=== PATIENT | female | born 1980 | race American Indian/Alaskan Native ===

== ENCOUNTER 2018-01-04 10:01 | Emergency (ER) | payer SELFPAY ==
[2018-01-04] MEDS ORDERED: NACL 0.9% 1000 ML 1,000 ML IV ONE (10:57)
[2018-01-04] MEDS ORDERED: MORPHINE IV ONE (10:57)
[2018-01-04] MEDS ORDERED: TORADOL IV ONE (10:57)
[2018-01-04] MEDS ORDERED: ZOFRAN IV ONE (10:57)
--- NOTE | 2018-01-04 10:59 | Emergency Department Report ---
Blank Doc - Documentation Documentation: Patient 37-year-old Female who had abrupt onset of pain this morning. Patient has pain in the right flank. Patient has some urinary frequency and dysuria as well. Patient has a history of kidney stones. Focused physical exam patient is has some mild to moderate distress secondary to pain. She does have some right CVA tenderness. Show will have a CT of abdomen and pelvis done patient be given this for symptomatic relief.
[2018-01-04 11:15] LABS: Basophils % (Auto) 0.4 % (0.0-1.8); Eosinophils # (Auto) 0.1 K/mm3 (0.0-0.4); Eosinophils % (Auto) 1.4 % (0.0-4.3); Hematocrit 32.9 % (30.3-42.9); Hemoglobin 10.7 gm/dl (10.1-14.3); Lymphocytes # (Auto) 2.6 K/mm3 (1.2-5.4); Mean Corpuscular HGB Conc 33 % (30-34); Mean Corpuscular Hemoglobin 27 pg (28-32); Mean Corpuscular Volume 82 fl (79-97); Monocytes # (Auto) 0.4 K/mm3 (0.0-0.8); Monocytes % (Auto) 5.9 % (0.0-7.3); Platelet Count 318 K/mm3 (140-440); Red Blood Count 4.02 M/mm3 (3.65-5.03); Red Cell Distribution Width 15.9 % (13.2-15.2)
[2018-01-04 11:31] LABS: BUN/Creatinine Ratio 11; Blood Urea Nitrogen 9 mg/dL (7-17); Calcium 8.4 mg/dL (8.4-10.2); Hemolysis Index 9
[2018-01-04 11:39] LABS: Bacteria,Urine 1+ /HPF (Negative); Bilirubin,Urine NEG (Negative); Blood,Urine NEG (Negative); Color,Urine Yellow (Yellow); Mucus,Urine 1+ /HPF; Protein,Urine <15 mg/dL mg/dL (Negative); Urobilinogen,Urine < 2.0 mg/dL (<2.0)
[2018-01-04 11:40] LABS: HCG Qualitative,Urine Negative (Negative)
--- NOTE | 2018-01-04 13:00 | Cat Scan Report ---
CT abdomen and pelvis without contrast: Right flank pain. Transverse images are obtained from lower chest to the ischium with coronal and sagittal 2-D reformatted images. The visualized lung bases are normal. The solid abdominal organs appear normal as does the gallbladder. The stomach is distended with fluid. The right kidney contains a circumscribed low density mass measuring 2.6 cm consistent with cyst. There 2 small calcifications in the upper and mid right kidney with a larger calcification in the central lower kidney measuring 7.7 mm in size. There are 2 dominant calcifications in the left kidney. In the upper pole and measures 4 mm and in the lower pole is a 3.5 mm calcification. The right renal collecting system it does appear slightly dilated as does the right ureter to the level of the pelvis. There are some calcifications in the pelvis which are either adjacent or lie within the ureter. The larger of the 2 measures just under 7 mm. The left collecting system is nondilated and there is no apparent ureteral calculus. The unopacified bowel and mesentery are are unremarkable. The appendix is visualized. Imaging of the pelvis demonstrate an apparent enlargement of a multilobulated uterus measuring approximately 14 cm in maximum dimension. Impressions: 1. Multiple bilateral renal calculi. 2. Mild right nephroureteral dilatation most likely due to a distal ureteral calculus but not confirmed. See discussion above. 3. Enlarged multilobulated uterus.
--- NOTE | 2018-01-04 13:21 | Emergency Department Report ---
ED Abdominal Pain HPI - General Chief Complaint: Back Pain/Injury Stated Complaint: SOB, BACK PAIN Time Seen by Provider: 01/04/18 10:55 Source: patient, family Mode of arrival: Ambulatory Limitations: No Limitations - History of Present Illness Initial Comments: Patient 37-year-old Female who had abrupt onset of pain this morning. Patient has pain in the right flank. Patient has some urinary frequency and dysuria as well. Patient has a history of kidney stones. Patient reports some nausea and vomiting. . Pain is 10 out of 10 sharp and crampy. Denies any fever or chills. No medication taken for pain per patient. Pain is exacerbated by movement and no alleviating factors. MD Complaint: flank pain -: This morning Location: R flank Radiation: none Migration to: no migration Severity scale (0 -10): 10 Quality: cramping, sharp Consistency: constant Improves With: nothing Worsens With: vomiting, movement Context: other (history of kidney stones) Associated Symptoms: nausea, vomiting, dysuria. denies: diarrhea, fever, chills , constipation, hematemesis, hematochezia, melena, hematuria, anorexia, syncope Treatments Prior to Arrival: other (none taken) - Related Data LMP Date: 12/14/17 Previous Rx's Medication Instructions Recorded Last Taken Type HYDROcodone/ACETAMINOPHEN [[place] 1 each PO Q6H PRN #12 tablet 01/04/18 Unknown Rx 5-325 Tablet] Ondansetron [Zofran Odt] 4 mg PO Q6H PRN #20 tab.rapdis 01/04/18 Unknown Rx cephALEXin [Keflex] 500 mg PO Q8HR 7 Days #21 cap 01/04/18 Unknown Rx Allergies Allergy/AdvReac Type Severity Reaction Status Date / Time No Known Allergies Allergy Unverified 01/04/18 10:33 ED Review of Systems ROS: Stated complaint: SOB, BACK PAIN Other details as noted in HPI Constitutional: denies: chills, fever ENT: denies: ear pain, throat pain, congestion Respiratory: denies: cough, shortness of breath, SOB with exertion, SOB at rest , stridor, wheezing Cardiovascular: denies: chest pain, palpitations, dyspnea on exertion, edema, syncope Gastrointestinal: denies: abdominal pain, nausea, vomiting, diarrhea, hematemesis, hematochezia Genitourinary: frequency. denies: dysuria, hematuria, discharge, abnormal menses, dyspareunia Musculoskeletal: back pain. denies: joint swelling, arthralgia Skin: denies: rash, lesions Neurological: denies: headache, numbness, paresthesias ED Past Medical Hx - Past Medical History Previous Medical History?: No - Surgical History Past Surgical History?: No - Family History Family history: hypertension - Social History Smoking Status: Never Smoker Substance Use Type: None - Medications Home Medications: Home Medications Medication Instructions Recorded Confirmed Last Taken Type HYDROcodone/ACETAMINOPHEN [[place] 1 each PO Q6H PRN #12 tablet 01/04/18 Unknown Rx 5-325 Tablet] Ondansetron [Zofran Odt] 4 mg PO Q6H PRN #20 tab.rapdis 01/04/18 Unknown Rx cephALEXin [Keflex] 500 mg PO Q8HR 7 Days #21 cap 01/04/18 Unknown Rx ED Physical Exam - General Limitations: No Limitations General appearance: alert, in no apparent distress - Head Head exam: Present: atraumatic, normocephalic, normal inspection - Eye Eye exam: Present: normal appearance, PERRL, EOMI Pupils: Present: normal accommodation - ENT ENT exam: Present: normal exam, normal orophraynx, mucous membranes moist - Neck Neck exam: Present: normal inspection, full ROM. Absent: tenderness, lymphadenopathy - Respiratory Respiratory exam: Present: normal lung sounds bilaterally. Absent: respiratory distress, chest wall tenderness - Cardiovascular Cardiovascular Exam: Present: regular rate, normal rhythm, normal heart sounds - GI/Abdominal GI/Abdominal exam: Present: soft, normal bowel sounds. Absent: distended, tenderness, guarding, rebound, rigid, organomegaly, mass - Extremities Exam Extremities exam: Present: normal inspection, full ROM, normal capillary refill , other (No cce. + 2 pulses in all extremities, no neurovascular compromise). Absent: tenderness, pedal edema, joint swelling - Back Exam Back exam: Present: normal inspection, full ROM, tenderness, CVA tenderness (R) , other (ambulates without difficulty). Absent: CVA tenderness (L), muscle spasm, paraspinal tenderness, vertebral tenderness, rash noted - Neurological Exam Neurological exam: Present: alert, oriented X3, normal gait, reflexes normal. Absent: motor sensory deficit - Psychiatric Psychiatric exam: Present: normal affect, normal mood - Skin Skin exam: Present: warm, dry, intact, normal color. Absent: rash ED Course Vital Signs 01/04/18 10:29 Temperature 97.9 F Pulse Rate 73 Respiratory 22 Rate Blood Pressure 146/84 O2 Sat by Pulse 98 Oximetry - Reevaluation(s) Reevaluation #1: 01/04/18 13:21 Patient received normal saline 1 L IV, Toradol 30 mg IV, Zofran 4 mg IV and morphine 4 mg IV and she reports that she is in pain therefore she will be receiving Percocet 5/325 2 tablets and she will be discharged home. ED Medical Decision Making - Lab Data Result diagrams: 01/04/18 11:03 01/04/18 11:00 Lab Results 01/04/18 01/04/18 01/04/18 Range/Units 10:33 11:00 11:03 WBC 7.3 (4.5-11.0) K/mm3 RBC 4.02 (3.65-5.03) M/mm3 Hgb 10.7 (10.1-14.3) gm/dl Hct 32.9 (30.3-42.9) % MCV 82 (79-97) fl MCH 27 L (28-32) pg MCHC 33 (30-34) % RDW 15.9 H (13.2-15.2) % Plt Count 318 (140-440) K/mm3 Lymph % (Auto) 35.0 (13.4-35.0) % [place] % (Auto) 5.9 (0.0-7.3) % Eos % (Auto) 1.4 (0.0-4.3) % Baso % (Auto) 0.4 (0.0-1.8) % Lymph # 2.6 (1.2-5.4) K/mm3 [place] # 0.4 (0.0-0.8) K/mm3 Eos # 0.1 (0.0-0.4) K/mm3 Baso # 0.0 (0.0-0.1) K/mm3 Seg Neutrophils % 57.3 (40.0-70.0) % Seg Neutrophils # 4.2 (1.8-7.7) K/mm3 Sodium 133 L (137-145) mmol/L Potassium 4.0 (3.6-5.0) mmol/L Chloride 98.6 (98-107) mmol/L Carbon Dioxide 20 L (22-30) mmol/L Anion Gap 18 mmol/L BUN 9 (7-17) mg/dL Creatinine 0.8 (0.7-1.2) mg/dL Estimated GFR > 60 ml/min BUN/Creatinine Ratio 11 % Glucose 102 H (65-100) mg/dL POC Glucose 75 (70-105) Calcium 8.4 (8.4-10.2) mg/dL Urine Color (Yellow) Urine Turbidity (Clear) Urine pH (5.0-7.0) Ur Specific [place] (1.003-1.030) Urine Protein (Negative) mg/dL Urine Glucose (UA) (Negative) mg/dL Urine Ketones (Negative) mg/dL Urine Blood (Negative) Urine Nitrite (Negative) Urine Bilirubin (Negative) Urine Urobilinogen (<2.0) mg/dL Ur Leukocyte Esterase (Negative) Urine WBC (Auto) (0.0-6.0) /HPF Urine RBC (Auto) (0.0-6.0) /HPF U Epithel Cells (Auto) (0-13.0) /HPF Urine Bacteria (Auto) (Negative) /HPF Urine Mucus /HPF Urine HCG, Qual (Negative) 01/04/18 Range/Units 11:08 WBC (4.5-11.0) K/mm3 RBC (3.65-5.03) M/mm3 Hgb (10.1-14.3) gm/dl Hct (30.3-42.9) % MCV (79-97) fl MCH (28-32) pg MCHC (30-34) % RDW (13.2-15.2) % Plt Count (140-440) K/mm3 Lymph % (Auto) (13.4-35.0) % [place] % (Auto) (0.0-7.3) % Eos % (Auto) (0.0-4.3) % Baso % (Auto) (0.0-1.8) % Lymph # (1.2-5.4) K/mm3 [place] # (0.0-0.8) K/mm3 Eos # (0.0-0.4) K/mm3 Baso # (0.0-0.1) K/mm3 Seg Neutrophils % (40.0-70.0) % Seg Neutrophils # (1.8-7.7) K/mm3 Sodium (137-145) mmol/L Potassium (3.6-5.0) mmol/L Chloride (98-107) mmol/L Carbon Dioxide (22-30) mmol/L Anion Gap mmol/L BUN (7-17) mg/dL Creatinine (0.7-1.2) mg/dL Estimated GFR ml/min BUN/Creatinine Ratio % Glucose (65-100) mg/dL POC Glucose (70-105) Calcium (8.4-10.2) mg/dL Urine Color Yellow (Yellow) Urine Turbidity Slightly-cloudy (Clear) Urine pH 6.0 (5.0-7.0) Ur Specific [place] 1.023 (1.003-1.030) Urine Protein <15 mg/dl (Negative) mg/dL Urine Glucose (UA) Neg (Negative) mg/dL Urine Ketones Neg (Negative) mg/dL Urine Blood Neg (Negative) Urine Nitrite Neg (Negative) Urine Bilirubin Neg (Negative) Urine Urobilinogen < 2.0 (<2.0) mg/dL Ur Leukocyte Esterase Neg (Negative) Urine WBC (Auto) 1.0 (0.0-6.0) /HPF Urine RBC (Auto) 4.0 (0.0-6.0) /HPF U Epithel Cells (Auto) 11.0 (0-13.0) /HPF Urine Bacteria (Auto) 1+ (Negative) /HPF Urine Mucus 1+ /HPF Urine HCG, Qual Negative (Negative) Urine culture sent - Radiology Data Radiology results: report reviewed Patient CT scan of the abdomen and pelvis without contrast showing multiple bilateral renal calculi, mild right and no peripheral urethral dilatation most likely due to a distal urethral calculus but not confirmed. Enlarged multilobulated uterus. This was dictated by radiologist and report reviewed by myself. See details below [facility] [address] [place] [address] Cat Scan Report Signed Patient: KYRIE PIRES MR#: [id number] : 1980 Acct:[id number] Age/Sex: 37 / F ADM Date: 01/04/18 Loc: ED Attending Dr: Ordering Physician: SACHA LEVINE MD Date of Service: 01/04/18 Procedure(s): CT abdomen pelvis wo con Accession Number(s): [id number] cc: SACHA LEVINE MD CT abdomen and pelvis without contrast: Right flank pain. Transverse images are obtained from lower chest to the ischium with coronal and sagittal 2-D reformatted images. The visualized lung bases are normal. The solid abdominal organs appear normal as does the gallbladder. The stomach is distended with fluid. The right kidney contains a circumscribed low density mass measuring 2.6 cm consistent with cyst. There 2 small calcifications in the upper and mid right kidney with a larger calcification in the central lower kidney measuring 7.7 mm in size. There are 2 dominant calcifications in the left kidney. In the upper pole and measures 4 mm and in the lower pole is a 3.5 mm calcification. The right renal collecting system it does appear slightly dilated as does the right ureter to the level of the pelvis. There are some calcifications in the pelvis which are either adjacent or lie within the ureter. The larger of the 2 measures just under 7 mm. The left collecting system is nondilated and there is no apparent ureteral calculus. The unopacified bowel and mesentery are are unremarkable. The appendix is visualized. Imaging of the pelvis demonstrate an apparent enlargement of a multilobulated uterus measuring approximately 14 cm in maximum dimension. Impressions: 1. Multiple bilateral renal calculi. 2. Mild right nephroureteral dilatation most likely due to a distal ureteral calculus but not confirmed. See discussion above. 3. Enlarged multilobulated uterus. Transcribed By: [facility] Dictated By: TREASURE STAPLES MD Electronically Authenticated By: TREASURE STAPLES MD Signed Date/Time: 01/04/18 124 DD/ 123 TD/TT: 01/04/18 1242 - Medical Decision Making This is a 29-year-old female here reports that she has a room onset of lower back pain. She has a history of kidney stones she also reports dysuria and frequency and nausea and vomiting. CT scan of abdomen and pelvis without contrast was dictated by radiologist report reviewed by myself. See results below. 1. Multiple bilateral renal calculi. 2. Mild right nephroureteral dilatation most likely due to a distal ureteral calculus but not confirmed. See discussion above. 3. Enlarged multilobulated uterus. CBC, BMP stable except for some minor analysis. Urinalysis cloudy with 1+ bacteria urine culture sent. 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 She voices understanding. Patient is stable and discharged home in stable condition with prescription for Keflex, Zofran and [place]. I discussed with her that she needs to call urologist and FINISHING ROOM OPERATOR today to schedule an appointment for follow-up visit on Monday. She voiced understanding. Patient discharged home with her family in stable condition. . - Differential Diagnosis abdominal pathology, pelvis pathology, fibroid, kidney stones, UTI Critical care attestation.: If time is entered above; I have spent that time in minutes in the direct care of this critically ill patient, excluding procedure time. ED Disposition Clinical Impression: Nephroureterolithiasis, Dilation of right ureter, Right flank pain, Bacteriuria , Dysuria Disposition: -01 TO HOME OR SELFCARE Is pt being admited?: No Does the pt Need Aspirin: No Condition: Stable Instructions: Renal Colic (ED), Flank Pain (ED), Kidney Stones (ED), Dysuria ( ED), Acute Nausea and Vomiting (ED) Additional Instructions: Please take antibiotic as prescribed for bacteria and a urine. Take [place] for pain but please do not drive or operate heavy machinery while taking this medication is cause drowsiness Take Zofran for nausea as prescribed Increase his fluid intake to 2-3 L of water daily follow-up with FINISHING ROOM OPERATOR and urologist as discussed If symptoms worsens, return to the emergency room Referrals: DAVID NIXON MD [Primary Care Provider] - 01/05/18 [facility] [Provider Group] - 01/05/18 LISA GARDINER MD [Staff Physician] - 01/08/18 Forms: Work/School Release Form(ED), Accompanied Note
[2018-01-04] MEDS ORDERED: PERCOCET 5/325 PO ONE (13:29)
[2018-01-04] MEDS ORDERED: PERCOCET 5/325 ONE (13:33)
[2018-01-04 15:00] VITALS: BP 114/63
== END 2018-01-04 15:01 | disposition home or self-care (01) ==
LOC: ED 10:01
DX: N20.2 Calculus of kidney with calculus of ureter (principal); R30.0 Dysuria; R82.71 Bacteriuria
CPT/HCPCS: 36415; 74176; 80048; 81001; 81025; 82962; 85025; 87086; 96361; 96374; 96375; 99284; J1885; J2270; J2405; J7030